=== PATIENT | female | born 1970 | race Caucasian/White ===

== ENCOUNTER 2018-11-04 13:28 | Inpatient (IN) | payer OTHER ==
[2018-11-04] VITALS (12 sets, daily range): BP systolic 145–177; BP diastolic 69–100
[~2018-11-04] VITALS: Ht 181.6 cm; Wt 72.4 kg
[2018-11-04] MEDS ORDERED: LIDOCAINE 1% Multi-Dose 20 ML VIAL. ONE (14:29)
[2018-11-04] MEDS ORDERED: IODIXANOL 320 MG/ML 100 ML VIAL. ONE (14:29)
[2018-11-04] MEDS ORDERED: MIDAZOLAM HCL/PF 2 MG/2 ML VIAL. ONE (14:31)
[2018-11-04] MEDS ORDERED: fentaNYL PF VIAL 100 MCG/2 ML VIAL ONE (14:31)
[2018-11-04] MEDS ORDERED: fentaNYL PF VIAL 100 MCG/2 ML VIAL IV ONE (14:45)
[2018-11-04] MEDS ORDERED: MIDAZOLAM HCL/PF 2 MG/2 ML VIAL. IV ONE (14:45)
--- NOTE | 2018-11-04 14:54 | PDOC ---
MODERATE SEDATION ASSESSMENT RISKS/ALTERNATIVES Risks/Alternatives Risks and alternatives of this type of sedation and procedure discussed with: RISK/ALTERNATIVES: Patient H & P ON CHART H & P H & P on chart and reviewed for co-morbid conditions and appropriate labs. H&P ON CHART: Yes STATUS PREG STATUS ASSESSED: Yes MEDS/ALLERGIES REVIEWED Meds/Allergies Reviewed Medications and Allergies including time and route of recently administered narcotics and sedatives. MEDS/ALLERGIES REVIEWED: Yes ASA RATING ASA RATING: II AIRWAY ASSESSMENT Airway Assessment Airway patency, oral function limitations, presence of caps, crowns, dentures, partials, and ability to extend neck assessed. AIRWAY ASSESSMENT: Yes MALLAMPATI SCORE MALLAMPATI SCORE: II PRE-SEDATION ASSESSMENT PRE-SEDATION ASSESSMENT: Yes CHACHA REESE MD November 04, 2018 14:54
[2018-11-04] MEDS ORDERED: IODIXANOL 320 MG/ML 100 ML VIAL. IART ONE (15:15)
[2018-11-04] MEDS ORDERED: LIDOCAINE 1% Multi-Dose 20 ML VIAL. INJ ONE (15:15)
[2018-11-04] MEDS ORDERED: CONTRAST GIVEN. MC PRN (15:30)
[2018-11-04] MEDS ORDERED: 0.9 % SODIUM CHLORIDE 10 ML DISP.SYRIN. IV PRN (15:45)
[2018-11-04] MEDS ORDERED: NITROGLYCERIN SUBLINGUAL 0.4 MG BOTTLE OF 25. SL PRN (15:45)
[2018-11-04] MEDS ORDERED: IV NORMAL SALINE 1000ML BAG 1,000 ML IV SCH ×2 (16:00→19:10)
--- NOTE | 2018-11-04 17:01 | CARD ---
MR#: [id number] Date of Study: 11/04/2018 Ordering Physician: CHACHA CANTOR, Referring Physician: Brianna PHELAN: MUNIR HERNANDEZ RTR APPROVED REPORT Procedures Left heart catheterization Left ventriculogram Selective coronary angiogram Left ventriculogram The patient is a 48-year-old female with progressive shortness of breath and chest pain over the past week. With exertion today she had increased chest pain. In this setting cardiac catheterization was recommended for a definitive diagnosis of possible coronary artery disease. Risks and benefits were d iscussed with the patient. She agreed to proceed. After informed consent was obtained the patient was brought to the heart catheterization lab. The are a of the right femoral artery was prepared the usual manner with Betadine, sterile draping and local anesthetic. An 18-gauge needle was used to enter the right femoral artery, a wire placed and a 6 Fren ch sheath placed over the wire. A 6 Greek JL4 diagnostic catheter was used to engage the left ochoa ry system and sequential injections in various views were obtained. A 6 [place] Miguel right diagnos tic catheter was used to engage the right coronary artery and sequential injections in various views were obtained. A pigtail catheter was advanced to the ascending aorta and then the left ventricle. Pr essures were obtained. A 30 CARO left ventriculogram was performed. Pullback pressures were measured. A 30 IVETH aortic root injection was performed. The catheter was removed from the patient. Of note al l catheter exchanges were over a J-wire. Injection of the sheath showed normal placement. The sheath was removed and sealed with an Angio-Seal product. The patient was moved to the holding area in sta e condition. Findings Hemodynamics. Left ventricular pressure of 146/6, 14 Aortic root pressure of 144/72. Coronaries. Left main. The left main was a normal-size vessel with no lesions. Left anterior descending. The LAD was a moderate size vessel with normal distribution. It had a very proximal 20-25% lesion. Left circumflex. The left circumflex is a moderate size dominant vessel. It had no lesions. Right coronary artery. Right coronary was a moderate size nondominant vessel. Had a proximal 10% lesi on and a mid 15% lesion. Left ventriculogram. The left ventricle showed normal left ventricular systolic function with an ejection fraction of grea ter than 55%. Aortic root. The aortic root appeared normal without enlargement or aortic insufficiency. <Conclusion> Mild 2 vessel coronary disease with no lesions greater than 25%. Normal left ventricular systolic function. Normal left ventricular EDP. Normal aortic root. Signed by : Chacha Cantor MD Electronically Approved : 11/04/2018 17:00:02
[2018-11-04] MEDS ORDERED: ALBUTEROL SULFATE 2.5 MG/3 ML NEBU. NEB PRN (18:30)
[2018-11-04] MEDS ORDERED: hydrALAZINE 20 MG/ML VIAL. IVP PRN (18:30)
--- NOTE | 2018-11-04 19:04 | PDOC1 ---
History and Physical Date of Admission Date of Admission DATE: 11/04/18 TIME: 19:04 Identification/Chief Complaint Chief Complaint transfer from [facility] for unstable angina and dyspnea x 3 weeks Past Medical History Cardiovascular: HTN Pulmonary: COPD Family History Family History: High Cholestrol, Hypertension Social History Smoke: <1 pack per day ALCOHOL: occassional Drugs: None Current Medications Current Medications Current Medications Iodixanol (Visipaque 320) 100 ml STK-MED ONCE .ROUTE ; Start 11/04/18 at 14:29; Stop 11/04/18 at 14:30; Status DC Lidocaine HCl (Lidocaine 1% 20ml Vial) 20 ml STK-MED ONCE .ROUTE ; Start 11/04/18 at 14:29; Stop 11/04/18 at 14:30; Status DC Heparin Sodium/ Sodium Chloride 1,000 ml @ As Directed STK-MED ONCE .ROUTE ; Start 11/04/18 at 14:30; Stop 11/04/18 at 14:31; Status DC Fentanyl Citrate (Fentanyl 2ml Vial) 100 mcg STK-MED ONCE .ROUTE ; Start 11/04/18 at 14:31; Stop 11/04/18 at 14:32; Status DC Midazolam HCl (Versed) 2 mg STK-MED ONCE .ROUTE ; Start 11/04/18 at 14:31; Stop 11/04/18 at 14:32; Status DC Midazolam HCl (Versed) 2 mg 1X ONCE IV Last administered on 11/04/18at 15:30; Start 11/04/18 at 14:45; Stop 11/04/18 at 14:46; Status DC Fentanyl Citrate (Fentanyl 2ml Vial) 100 mcg 1X ONCE IV Last administered on 11/04/18at 15:29; Start 11/04/18 at 14:45; Stop 11/04/18 at 14:46; Status DC Heparin Sodium/ Sodium Chloride (HEPARIN for ARTERIAL LINE FLUSH) 1,000 unit 1X ONCE IART Last administered on 11/04/18at 15:30; Start 11/04/18 at 15:15; Stop 11/04/18 at 15:17; Status DC Iodixanol (Visipaque 320) 100 ml 1X ONCE IART Last administered on 11/04/18at 15:28; Start 11/04/18 at 15:15; Stop 11/04/18 at 15:17; Status DC Lidocaine HCl (Lidocaine 1% 20ml Vial) 20 ml 1X ONCE INJ Last administered on 11/04/18at 15:29; Start 11/04/18 at 15:15; Stop 11/04/18 at 15:17; Status DC Info (CONTRAST GIVEN -- Rx MONITORING) 1 each PRN DAILY PRN MC SEE COMMENTS; Start 11/04/18 at 15:30; Stop 11/06/18 at 15:29 Sodium Chloride (Normal Saline Flush) 3 ml QSHIFT PRN IV AFTER MEDS AND BLOOD DRAWS; Start 11/04/18 at 15:45 Sodium Chloride 1,000 ml @ 75 mls/hr [id number] IV Last administered on 11/04/18at 17:17; Start 11/04/18 at 16:00; Stop 11/04/18 at 16:01; Status DC Nitroglycerin (Nitrostat) 0.4 mg PRN Q5MIN PRN SL CHEST PAIN; Start 11/04/18 at 15:45 Amlodipine Besylate (Norvasc) 5 mg DAILY PO ; Start 11/04/18 at 18:30 Hydralazine HCl (Apresoline Inj) 10 mg PRN Q6HRS PRN IVP ELEVATED BP, SEE COMMENTS; Start 11/04/18 at 18:30 Albuterol Sulfate (Ventolin Neb Soln) 2.5 mg PRN Q6HRS PRN NEB SHORTNESS OF BREATH; Start 11/04/18 at 18:30 Allergies Allergies: Coded Allergies: Sulfa (Sulfonamide Antibiotics) (Verified Allergy, Intermediate, 11/04/18) Tetracyclines (Verified Allergy, Intermediate, Hives, 11/04/18) ROS General: No: Chills, Night Sweats, Fatigue, Malaise, Appetite, Other PSYCHOLOGICAL ROS: YES: Anxiety; No: Behavioral Disorder, Concentration difficultie, Decreased libido, Depression, Disorientation, Hallucinations, Hostility, Irritablity, Memory difficulties, Mood Swings, Obsessive thoughts, Physical abuse, Sexual abuse, Sleep disturbances, Suicidal ideation, Other Eyes: No Blurry vision, No Decreased vision, No Double vision, No Dry eyes, No Excessive tearing, No Eye Pain, No Itchy Eyes, No Loss of vision, No Photophobia, No Scotomata, No Uses contacts, No Uses glasses, No Other ALLERGY AND IMMUNOLOGY: No: Hives, Insect Bite Sensitivity, Itchy/Watery Eyes, Nasal Congestion, Post Nasal Drip, Seasonal Allergies, Other Hematological and Lymphatic: No: Bleeding Problems, Blood Clots, Blood Transfusions, Brusing, Night Sweats, Pallor, Swollen Lymph Nodes, Other ENDOCRINE: No: Breast Changes, Galactorrhea, Hair Pattern Changes, Hot Flashes, Malaise/lethargy, Mood Swings, Palpitations, Polydipsia/polyuria, Skin Changes, Temperature Intolerance, Unexpected Weight Changes, Other Respiratory: YES: Shortness of breath, SOB with excertion; No: Cough, Hemoptysis, Orthopnea, Pleuritic Pain, Sputum Changes, Stridor, Tachypnea, Wheezing, Other Cardiovascular: yes Chest Pain; No Palpitations, No Orthopnea, No Paroxysmal Noc. Dyspnea, No Edema, No Lt Headedness, No Other Gastrointestinal: No Nausea, No Vomiting, No Abdominal Pain, No Diarrhea, No Constipation, No Melena, No Hematochezia, No Other Genitourinary: No Dysuria, No Frequency, No Incontinence, No Hematuria, No Retention, No Discharge, No Urgency, No Pain, No Flank Pain, No Other, No , No , No , No , No , No , No Musculoskeletal: No Gait Disturbance, No Joint Pain, No Joint Stiffness, No Joint Swelling, No Muscle Pain, No Muscular Weakness, No Pain In:, No Swelling In:, No Other Neurological: No Behavorial Changes, No Bowel/Bladder ControlChng, No Confusion, No Dizziness, No Gait Disturbance, No Headaches, No Impaired Coord/balance, No Memory Loss, No Numbness/Tingling, No Seizures, No Speech Problems, No Tremors, No Visual Changes, No Weakness, No Other Skin: No Dry Skin, No Eczema, No Hair Changes, No Lumps, No Mole Changes, No Mottling, No Nail Changes, No Pruritus, No Rash, No Skin Lesion Changes, No Other, No Acne Physical Exam General: Alert, Oriented X3, Cooperative, No acute distress HEENT: PERRLA Lungs: Clear to auscultation, Normal air movement Breasts: Not examined Abdomen: Normal bowel sounds, Soft Rectal Exam: not examined Neuro: Normal speech, Strength at 5/5 X4 ext, Normal tone, Sensation intact, Cranial nerves 3-12 NL Psych/Mental Status: Mental status NL, Mood NL Vitals Vitals Vital Signs Date Time Temp Pulse Resp B/P (MAP) Pulse Ox O2 Delivery O2 Flow Rate FiO2 11/04/18 18:29 67 148/78 (101) 11/04/18 16:12 97.8 20 97 97.8 11/04/18 15:31 Room Air 11/04/18 15:29 2.0 Images Images ocedures Left heart catheterization Left ventriculogram Selective coronary angiogram Left ventriculogram The patient is a 48-year-old female with progressive shortness of breath and chest pain over the past week. With exertion today she had increased chest pain. In this setting cardiac catheterization was recommended for a definitive diagnosis of possible coronary artery disease. Risks and benefits were discussed with the patient. She agreed to proceed. After informed consent was obtained the patient was brought to the heart catheterization lab. The area of the right femoral artery was prepared the usual manner with Betadine, sterile draping and local anesthetic. An 18-gauge needle was used to enter the right femoral artery, a wire placed and a 6 [place] Citizen sheath placed over the wire. A 6 [place] Citizen JL4 diagnostic catheter was used to engage the left coronary system and sequential injections in various views were obtained. A 6 [place] Citizen Miguel right diagnostic catheter was used to engage the right coronary artery and sequential injections in various views were obtained. A pigtail catheter was advanced to the ascending aorta and then the left ventricle. Pressures were obtained. A 30 CARO left ventriculogram was performed. Pullback pressures were measured. A 30 [place] aortic root injection was performed. The catheter was removed from the patient. Of note all catheter exchanges were over a J-wire. Injection of the sheath showed normal placement. The sheath was removed and sealed with an Angio-Seal product. The patient was moved to the holding area in stable condition. Findings Hemodynamics. Left ventricular pressure of 146/6, 14 Aortic root pressure of 144/72. Coronaries. Left main. The left main was a normal-size vessel with no lesions. Left anterior descending. The LAD was a moderate size vessel with normal distribution. It had a very proximal 20-25% lesion. Left circumflex. The left circumflex is a moderate size dominant vessel. It had no lesions. Right coronary artery. Right coronary was a moderate size nondominant vessel. Had a proximal 10% lesion and a mid 15% lesion. Left ventriculogram. The left ventricle showed normal left ventricular systolic function with an ejection fraction of greater than 55%. Aortic root. The aortic root appeared normal without enlargement or aortic insufficiency. <Conclusion> Mild 2 vessel coronary disease with no lesions greater than 25%. Normal left ventricular systolic function. Normal left ventricular EDP. Normal aortic root. Signed by : Gregor Cantor MD Electronically Approved : 11/04/2018 17:00:02 VTE Prophylaxis Ordered VTE Prophylaxis Devices: Yes VTE Pharmacological Prophylaxi: Yes Assessment/Plan Assessment/Plan impression 1. unstable angina 2. DYSPNEA 3. TOBACCO ABUSE 4. HYPERTENSION PLAN ADMIT CVC CONSULT CARDIOLOGY CATH TODAY DVT PROPHYLAXIS BP CONTROL EDUCATION FOR SMOKING CESSATION provided BRENNAN CONNELLY MD November 04, 2018 19:04
[2018-11-04] MEDS ORDERED: MAG HYDROX/ALUMINUM HYD/SIMETH 30 ML ORAL.SUSP PO PRN (19:15)
[2018-11-04] MEDS ORDERED: cloNIDine HCL 0.1 MG TABLET PO PRN (19:15)
[2018-11-04] MEDS ORDERED: ACETAMINOPHEN 325 MG TABLET. PO PRN (19:15)
[2018-11-04] MEDS ORDERED: ONDANSETRON PF 4 MG/2 ML VIAL. IV PRN (19:15)
[2018-11-04] MEDS ORDERED: 0.9 % SODIUM CHLORIDE 3ML DISP.SYRIN. IV PRN (19:15)
[2018-11-04] MEDS ORDERED: LORazepam 0.5 MG TABLET PO PRN (19:15)
[2018-11-04] MEDS ORDERED: guaiFENesin ORAL 200 MG/10 ML LIQUID. PO PRN (19:15)
[2018-11-04] MEDS ORDERED: ZOLPIDEM 5 MG TABLET. PO PRN (19:15)
[2018-11-04] MEDS ORDERED: diphenhydrAMINE 50 MG/ML VIAL IVP PRN (19:15)
[2018-11-04] MEDS ORDERED: DOCUSATE SODIUM 100 MG CAPSULE. PO PRN (19:15)
[2018-11-04] MEDS ORDERED: ALBU2.5V8 INH (19:53)
[2018-11-04] MEDS ORDERED: MAGN400T22 PO (19:53)
[2018-11-04] MEDS ORDERED: MULT1TAB52 PO (19:53)
[2018-11-04] MEDS ORDERED: POTA10TA6 PO (19:53)
[2018-11-04] MEDS ORDERED: ENOXAPARIN 40 MG/0.4 ML SYRINGE. SQ SCH (20:00)
[2018-11-04] MEDS: IPRATRPIUM/ALBUTEROL 0.5/2.5MG 3 ML NEBU. NEB SCH ×2 (20:00→23:05)
[2018-11-04] MEDS: amLODIPine BESYLATE 5 MG TABLET PO SCH (20:22)
[2018-11-04 22:15] LABS: BILIRUBIN,URINE NEGATIVE (NEG); CLARITY,URINE CLEAR; COLOR,URINE YELLOW; NITRITE,URINE NEGATIVE (NEG); PH,URINE 6.5; PROTEIN,URINE NEGATIVE (NEG-TRACE)
[2018-11-04 22:34] LABS: BACTERIA,URINE FEW /HPF (0-FEW); RBC,URINE RARE /HPF (0-2); SQUAMOUS EPITHELIAL CELL,UR FEW /LPF; WBC,URINE 0 /HPF (0-4)
[2018-11-05 02:33] VITALS: BP 155/82
[2018-11-05] MEDS: IPRATRPIUM/ALBUTEROL 0.5/2.5MG 3 ML NEBU. NEB SCH ×4 (03:10→16:00)
[2018-11-05 07:07] VITALS: BP 163/82
[2018-11-05] MEDS: amLODIPine BESYLATE 5 MG TABLET PO SCH (09:31)
[2018-11-05 11:20] VITALS: BP 158/81
--- NOTE | 2018-11-05 13:32 | PDOC ---
PROGRESS NOTES Subjective Subjective Patient seen and examined She looks and feels better today. Objective Objective Vital Signs Date Time Temp Pulse Resp B/P (MAP) Pulse Ox O2 Delivery O2 Flow Rate FiO2 11/05/18 11:20 98.7 67 20 158/81 (106) 99 Room Air 98.7 11/04/18 15:29 2.0 Intake and Output 11/05/18 07:00 Intake Total 2933 ml Output Total 1900 ml Balance 1033 ml Intake Oral 2300 ml IV Total 633 ml Output Urine Total 1900 ml Physical Exam Abdomen: Normal bowel sounds Heart: Regular rate General: No acute distress Lungs: Other (slightly decreased breath sounds) Assessment Assessment 1. Coronary artery disease. Cardiac catheterization showed mild coronary disease with no lesions greater than 25%. LV systolic function is normal. Aortic root is normal. We'll treat with low-dose aspirin. Statins for hyperlipidemia. Holding beta blockers at this time secondary to COPD. On Norvasc for hypertension. We will arrange follow-up with the patient by phone on Wednesday. 2. Hypertension. Better controlled with Norvasc. 3. Hyperlipidemia. Statin medication. 4. COPD. Discussed discontinuation of smoking. Symptomatic treatment with albuterol inhaler at home. Comment Review of Relevant I have reviewed the following items aurora (where applicable) has been applied. Labs Laboratory Tests Test 11/04/18 21:47 Urine Collection Type Unknown Urine Color Yellow Urine Clarity Clear Urine pH 6.5 Urine Specific [place] >=1.030 Urine Protein Negative mg/dL (NEG-TRACE) Urine Glucose (UA) Negative mg/dL (NEG) Urine Ketones (Stick) Negative mg/dL (NEG) Urine Blood Trace (NEG) Urine Nitrite Negative (NEG) Urine Bilirubin Negative (NEG) Urine Urobilinogen Dipstick 1.0 mg/dL (0.2 mg/dL) Urine Leukocyte Esterase Negative (NEG) Urine RBC Rare /HPF (0-2) Urine WBC 0 /HPF (0-4) Urine Squamous Epithelial Cells Few /LPF Urine Bacteria Few /HPF (0-FEW) Laboratory Tests Test 11/04/18 21:47 Urine Collection Type Unknown Urine Color Yellow Urine Clarity Clear Urine pH 6.5 Urine Specific [place] >=1.030 Urine Protein Negative mg/dL (NEG-TRACE) Urine Glucose (UA) Negative mg/dL (NEG) Urine Ketones (Stick) Negative mg/dL (NEG) Urine Blood Trace (NEG) Urine Nitrite Negative (NEG) Urine Bilirubin Negative (NEG) Urine Urobilinogen Dipstick 1.0 mg/dL (0.2 mg/dL) Urine Leukocyte Esterase Negative (NEG) Urine RBC Rare /HPF (0-2) Urine WBC 0 /HPF (0-4) Urine Squamous Epithelial Cells Few /LPF Urine Bacteria Few /HPF (0-FEW) Medications Current Medications Iodixanol (Visipaque 320) 100 ml STK-MED ONCE .ROUTE ; Start 11/04/18 at 14:29; Stop 11/04/18 at 14:30; Status DC Lidocaine HCl (Lidocaine 1% 20ml Vial) 20 ml STK-MED ONCE .ROUTE ; Start 11/04/18 at 14:29; Stop 11/04/18 at 14:30; Status DC Heparin Sodium/ Sodium Chloride 1,000 ml @ As Directed STK-MED ONCE .ROUTE ; Start 11/04/18 at 14:30; Stop 11/04/18 at 14:31; Status DC Fentanyl Citrate (Fentanyl 2ml Vial) 100 mcg STK-MED ONCE .ROUTE ; Start 11/04/18 at 14:31; Stop 11/04/18 at 14:32; Status DC Midazolam HCl (Versed) 2 mg STK-MED ONCE .ROUTE ; Start 11/04/18 at 14:31; Stop 11/04/18 at 14:32; Status DC Midazolam HCl (Versed) 2 mg 1X ONCE IV Last administered on 11/04/18at 15:30; Start 11/04/18 at 14:45; Stop 11/04/18 at 14:46; Status DC Fentanyl Citrate (Fentanyl 2ml Vial) 100 mcg 1X ONCE IV Last administered on 11/04/18at 15:29; Start 11/04/18 at 14:45; Stop 11/04/18 at 14:46; Status DC Heparin Sodium/ Sodium Chloride (HEPARIN for ARTERIAL LINE FLUSH) 1,000 unit 1X ONCE IART Last administered on 11/04/18at 15:30; Start 11/04/18 at 15:15; Stop 11/04/18 at 15:17; Status DC Iodixanol (Visipaque 320) 100 ml 1X ONCE IART Last administered on 11/04/18at 15:28; Start 11/04/18 at 15:15; Stop 11/04/18 at 15:17; Status DC Lidocaine HCl (Lidocaine 1% 20ml Vial) 20 ml 1X ONCE INJ Last administered on 11/04/18at 15:29; Start 11/04/18 at 15:15; Stop 11/04/18 at 15:17; Status DC Info (CONTRAST GIVEN -- Rx MONITORING) 1 each PRN DAILY PRN MC SEE COMMENTS; Start 11/04/18 at 15:30; Stop 11/06/18 at 15:29 Sodium Chloride (Normal Saline Flush) 3 ml QSHIFT PRN IV AFTER MEDS AND BLOOD DRAWS; Start 11/04/18 at 15:45 Sodium Chloride 1,000 ml @ 75 mls/hr [id number] IV Last administered on 11/04/18at 17:17; Start 11/04/18 at 16:00; Stop 11/04/18 at 16:01; Status DC Nitroglycerin (Nitrostat) 0.4 mg PRN Q5MIN PRN SL CHEST PAIN; Start 11/04/18 at 15:45 Amlodipine Besylate (Norvasc) 5 mg DAILY PO Last administered on 11/05/18at 09:31; Start 11/04/18 at 18:30 Hydralazine HCl (Apresoline Inj) 10 mg PRN Q6HRS PRN IVP ELEVATED BP, SEE COMMENTS; Start 11/04/18 at 18:30 Albuterol Sulfate (Ventolin Neb Soln) 2.5 mg PRN Q6HRS PRN NEB SHORTNESS OF BREATH; Start 11/04/18 at 18:30 Enoxaparin Sodium (Lovenox 40mg Syringe) 40 mg Q24H SQ Last administered on 11/04/18at 20:22; Start 11/04/18 at 20:00 Sodium Chloride (Normal Saline Flush 3ml) 3 ml QSHIFT PRN IV AFTER MEDS AND BLOOD DRAWS; Start 11/04/18 at 19:15 Sodium Chloride 1,000 ml @ 100 mls/hr Q10H IV ; Start 11/04/18 at 19:10; Stop 11/05/18 at 01:55; Status DC Ondansetron HCl (Zofran) 4 mg PRN Q4HRS PRN IV NAUSEA/VOMITING; Start 11/04/18 at 19:15 Zolpidem Tartrate (Ambien) 5 mg PRN QHS PRN PO INSOMNIA; Start 11/04/18 at 19:15 Acetaminophen (Tylenol) 650 mg PRN Q4HRS PRN PO TEMP OVER 100.4F OR MILD PAIN; Start 11/04/18 at 19:15 Al Hydroxide/Mg Hydroxide (Mylanta Plus Xs) 30 ml PRN DAILY PRN PO HEARTBURN / GAS; Start 11/04/18 at 19:15 Clonidine HCl (Catapres) 0.1 mg PRN Q6HRS PRN PO SBP>160 OR DBP>90; Start 11/04/18 at 19:15 Diphenhydramine HCl (Benadryl) 25 mg PRN Q4HRS PRN IVP ITCHING; Start 11/04/18 at 19:15 Docusate Sodium (Colace) 100 mg PRN BID PRN PO CONSTIPATION; Start 11/04/18 at 19:15 Albuterol/ Ipratropium (Duoneb) 3 ml Q4HRS NEB ; Start 11/04/18 at 20:00 Guaifenesin (Robitussin) 200 mg PRN Q4HRS PRN PO COUGH; Start 11/04/18 at 19:15 Lorazepam (Ativan) 0.5 mg PRN Q4HRS PRN PO ANXIETY / AGITATION; Start 11/04/18 at 19:15 Active Scripts Active Reported Mag-Oxide (Magnesium Oxide) 400 Mg Tablet 1 Tab PO DAILY Klor-Con 10 (Potassium Chloride) 10 Meq Tablet.er 20 Meq PO Q2DAYS Multivitamins (Multivitamin) 1 Each Tablet 1 Tab PO DAILY Proair Hfa (Albuterol Sulfate) 8.5 Gm Hfa.aer.ad 1 Puff INH PRN Q6HRS PRN Vitals/I & O Vital Sign - Last 24 Hours 11/04/18 11/04/18 11/04/18 11/04/18 15:29 15:31 15:40 15:45 Pulse 54 64 Resp 22 22 B/P (MAP) 156/79 (104) Pulse Ox 100 O2 Delivery Nasal Cannula Room Air Room Air O2 Flow Rate 2.0 11/04/18 11/04/18 11/04/18 11/04/18 15:55 16:10 16:12 16:25 Temp 97.8 97.8 Pulse 53 52 64 55 Resp 20 B/P (MAP) 145/86 (105) 157/100 (119) 156/79 (104) 151/93 (112) Pulse Ox 97 11/04/18 11/04/18 11/04/18 11/04/18 16:40 17:10 17:40 18:29 Pulse 61 64 68 67 B/P (MAP) 152/91 (111) 162/82 (108) 156/89 (111) 148/78 (101) 11/04/18 11/04/18 11/04/18 11/04/18 19:28 19:36 19:40 20:22 Temp 97.9 97.9 Pulse 72 66 Resp 18 B/P (MAP) 177/79 (111) 177/79 Pulse Ox 98 98 O2 Delivery Room Air Room Air Room Air 11/04/18 11/05/18 11/05/18 11/05/18 22:47 02:33 07:07 08:00 Temp 98.0 97.4 96.7 98.0 97.4 96.7 Pulse 69 55 72 Resp 18 18 B/P (MAP) 152/83 (106) 155/82 (106) 163/82 (109) Pulse Ox 97 98 96 O2 Delivery Room Air Room Air Room Air Room Air 11/05/18 11/05/18 11/05/18 08:02 09:31 11:20 Temp 98.7 98.7 Pulse 72 67 Resp 20 B/P (MAP) 163/81 158/81 (106) Pulse Ox 98 99 O2 Delivery Room Air Room Air Intake and Output 11/04/18 11/04/18 11/05/18 15:00 23:00 07:00 Intake Total 1200 ml 1733 ml Output Total 1700 ml 200 ml Balance -500 ml 1533 ml CHACHA REESE MD November 05, 2018 13:32
[2018-11-05] MEDS ORDERED: MONT10TA9 PO (13:33)
[2018-11-05] MEDS ORDERED: AMLO5TAB10 PO (13:33)
[2018-11-05] MEDS ORDERED: MOME17SP NS (13:33)
[2018-11-05] MEDS ORDERED: BUDE10.22 IH (13:33)
--- NOTE | 2018-11-05 13:40 | PDOC3 ---
Discharge Summary Visit Information Date of Admission: November 04, 2018 Date of Discharge: November 05, 2018 Admitting Diagnosis: Chest pain, asthma exacerbation Final Diagnosis Chest Pain, asthma exacerbation Brief Hospital Course Allergies Allergies Coded Allergies Type Severity Reaction Last Updated Verified Sulfa (Sulfonamide Antibiotics) Allergy Intermediate 11/04/18 Yes Tetracyclines Allergy Intermediate Hives 11/04/18 Yes Vital Signs Vital Signs Date Time Temp Pulse Resp B/P (MAP) Pulse Ox O2 Delivery O2 Flow Rate FiO2 11/05/18 11:20 98.7 67 20 158/81 (106) 99 Room Air 98.7 11/04/18 15:29 2.0 Lab Results Laboratory Tests Test 11/04/18 21:47 Urine Collection Type Unknown Urine Color Yellow Urine Clarity Clear Urine pH 6.5 Urine Specific [place] >=1.030 Urine Protein Negative mg/dL (NEG-TRACE) Urine Glucose (UA) Negative mg/dL (NEG) Urine Ketones (Stick) Negative mg/dL (NEG) Urine Blood Trace (NEG) Urine Nitrite Negative (NEG) Urine Bilirubin Negative (NEG) Urine Urobilinogen Dipstick 1.0 mg/dL (0.2 mg/dL) Urine Leukocyte Esterase Negative (NEG) Urine RBC Rare /HPF (0-2) Urine WBC 0 /HPF (0-4) Urine Squamous Epithelial Cells Few /LPF Urine Bacteria Few /HPF (0-FEW) Laboratory Tests Test 11/04/18 21:47 Urine Collection Type Unknown Urine Color Yellow Urine Clarity Clear Urine pH 6.5 Urine Specific [place] >=1.030 Urine Protein Negative mg/dL (NEG-TRACE) Urine Glucose (UA) Negative mg/dL (NEG) Urine Ketones (Stick) Negative mg/dL (NEG) Urine Blood Trace (NEG) Urine Nitrite Negative (NEG) Urine Bilirubin Negative (NEG) Urine Urobilinogen Dipstick 1.0 mg/dL (0.2 mg/dL) Urine Leukocyte Esterase Negative (NEG) Urine RBC Rare /HPF (0-2) Urine WBC 0 /HPF (0-4) Urine Squamous Epithelial Cells Few /LPF Urine Bacteria Few /HPF (0-FEW) Brief Hospital Course The patient is a 48-year-old female with progressive shortness of breath and chest pain over the past week, initially admitted to [facility], was transferred for urgent cath. With exertion today she had increased chest pain. In this setting cardiac catheterization was recommended for a definitive diagnosis of possible coronary artery disease. Cardiac cath: Mild 2 vessel coronary disease with no lesions greater than 25%. Normal left ventricular systolic function. Normal left ventricular EDP. Normal aortic root. She improved with addition of amlodipine and duonebs. Has severe allergic rhinitis and works as a office worker. Advised to keep windows open when cleaning. Assessment: Dyspnea - will add symbicort, singulair, nasal corticosteroids Unstable angina - s/p cath Smoker - advised to quit HTN - amlodipine Allergic rhinitis - as above PE - VS stable General: Alert, Oriented X3, Cooperative, No acute distress HEENT: PERRLA Lungs: Clear to auscultation, Normal air movement Breasts: Not examined Abdomen: Normal bowel sounds, Soft Rectal Exam: not examined Neuro: Normal speech, Strength at 5/5 X4 ext, Normal tone, Sensation intact, Cranial nerves 3-12 NL Psych/Mental Status: Mental status NL, Mood NL Greater than 30 minutes spent on discharge Discharge Information Condition at Discharge: Improved Follow Up: Weeks Disposition/Orders: D/C to Home Scheduled Amlodipine Besylate (Amlodipine Besylate) 5 Mg Tablet, 5 MG PO DAILY for High Blood Pressure for 30 Days, #30 Ref 11 Prescribed by: KAIT HURTADO MD on 11/05/18 1333 Budesonide/Formoterol Fumarate (Symbicort 80-4.5 Mcg Inhaler) 10.2 Gm Hfa.aer.ad, 2 PUFF IH BID for COPD for 30 Days, #10.2 Ref 5 Prescribed by: KAIT HURTADO MD on 11/05/18 1333 Magnesium Oxide (Mag-Oxide) 400 Mg Tablet, 1 TAB PO DAILY for health, #90 Ref 3 (Reported) Entered as Reported by: CYNDI MAK on 11/04/181952 Last Action: New Order on 11/04/181952 by CYNDI MAK Mometasone Furoate (Nasonex) 17 Gm [place].pump, 1 SPRAY NS DAILY for allergies for 30 Days, #1 Ref 3 Prescribed by: KAIT HURTADO MD on 11/05/18 1333 Montelukast Sodium (Montelukast Sodium Tablet) 10 Mg Tablet, 1 TAB PO DAILY for Asthma/Allergies for 30 Days, #30 Ref 5 Prescribed by: KAIT HURTADO MD on 11/05/18 1333 Multivitamin (Multivitamins) 1 Each Tablet, 1 TAB PO DAILY for health, #90 Ref 3 (Reported) Entered as Reported by: CYNDI MAK on 11/04/181952 Last Action: New Order on 11/04/181952 by CYNDI MAK Potassium Chloride (Klor-Con 10) 10 Meq Tablet.er, 20 MEQ PO Q2DAYS for health, (Reported) Entered as Reported by: CYNDI MAK on 11/04/181952 Last Action: New Order on 11/04/181952 by CYNDI MAK Scheduled PRN Albuterol Sulfate (Proair Hfa) 8.5 Gm Hfa.aer.ad, 1 PUFF INH PRN Q6HRS PRN for SHORTNESS OF BREATH, (Reported) Entered as Reported by: CYNDI MAK on 11/04/181952 Last Action: New Order on 11/04/181952 by KAIT GOMEZ MD November 05, 2018 13:40
[2018-11-05 15:29] VITALS: BP 140/72
== END 2018-11-05 17:30 | disposition home or self-care (01) | DRG 287 ==
LOC: 2 NORTH 14:28
PROVIDERS: ADMIT Family Medicine; ATTEND Family Medicine
PROC: 4A023N7 Measurement of Cardiac Sampling and Pressure, Left Heart, Percutaneous Approach (ICD-10-PCS; principal; 2018-11-04)
PROC: B2111ZZ Fluoroscopy of Multiple Coronary Arteries using Low Osmolar Contrast (ICD-10-PCS; 2018-11-04)
PROC: B2151ZZ Fluoroscopy of Left Heart using Low Osmolar Contrast (ICD-10-PCS; 2018-11-04)
PROC: B3101ZZ Fluoroscopy of Thoracic Aorta using Low Osmolar Contrast (ICD-10-PCS; 2018-11-04)
DX: I25.110 Atherosclerotic heart disease of native coronary artery with unstable angina pectoris (principal); J45.901 Unspecified asthma with (acute) exacerbation; I10 Essential (primary) hypertension; J44.9 Chronic obstructive pulmonary disease, unspecified; F17.210 Nicotine dependence, cigarettes, uncomplicated; E78.5 Hyperlipidemia, unspecified; Z82.49 Family history of ischemic heart disease and other diseases of the circulatory system; Z88.2 Allergy status to sulfonamides; Z71.6 Tobacco abuse counseling
CPT/HCPCS: 93458; 93567; G0269; 81001; 94760; 99152; 99153; C1760; C1769; C1892; J1644; J1650; J2250; J3010; J7030; Q9967; C1771